=== PATIENT | male | born 1955 | race Caucasian/White ===

== ENCOUNTER 2017-03-11 16:57 | Inpatient (IN) | payer MEDICARE, MEDICAID ==
[2017-03-11] MEDS ORDERED: Acetaminophen 650 MG Supp RECTAL PRN (17:12)
[2017-03-11] MEDS ORDERED: Ondansetron 4 MG/2 ML SDV IV PRN (17:12)
[2017-03-11] MEDS ORDERED: Morphine 2 MG/ML Syringe IVPUSH PRN (17:12)
[2017-03-11] MEDS ORDERED: Magnesium Hydroxide 400 MG/5 ML Susp 30 ML Cup PO PRN (17:12)
[2017-03-11] MEDS ORDERED: Acetaminophen 325 MG Tab PO PRN (17:12)
[2017-03-11] MEDS ORDERED: Ondansetron 4 MG Tab.DIS PO PRN (17:12)
[2017-03-11] MEDS ORDERED: Albuterol 0.083% 2.5 MG/3 ML Neb Soln NEB PRN (17:12)
[2017-03-11] MEDS ORDERED: Benzonatate 100 MG Cap PO PRN (17:18)
[2017-03-11] MEDS: Sodium Chloride 0.9% 500 ML IV SCH ×2 (17:40→22:20)
[2017-03-11] MEDS ORDERED: POLYVINYL ALCOHOL EYEBOTH PRN (17:46)
[2017-03-11] MEDS ORDERED: Hypromellose 0.4% Ophth Soln 15 ML Bottle EYEBOTH PRN (17:52)
--- NOTE | 2017-03-11 17:56 | PCM.HP ---
H&P History of Present Illness - General Date of Service: 03/11/17 Admit Problem/Dx: Admission Diagnosis/Problem Admission Diagnosis/Problem Aspiration pneumonia Source of Information: Family, Provider. No: Patient History Limitations: Reports: No Limitations - History of Present Illness Initial Comments - Free Text/Narative: Darius was transferred to [place] for management of aspiration pneumonia. He initially presented to the emergency room in [place] from a care home in that area with concerns regarding aspiration. He was reportedly very lethargic and running a temperature of 101. Per report there is no episode of vomiting last night while he was wearing his CPap mask and this was what raised concern for aspiration. He is unable to provide any history so history is gathered from the emergency room personnel and his sister Geno. Evaluation in the emergency room was consistent with aspiration pneumonia. There was evidence for sepsis with tachycardia, hypotension, tachypnea. He had a significant leukocytosis with a white blood cell count of 29,000. There were no beds available so he was transferred here for admission. - Related Data Allergies/Adverse Reactions: Allergies Allergy/AdvReac Type Severity Reaction Status Date / Time No Known Allergies Allergy Verified 03/11/17 17:12 Home Medications: Home Meds Acetaminophen [Tylenol Extra Strength] 500 - 1,000 mg PO QID PRN 03/11/17 [ History] Acetylcysteine [Mucomyst 10%] 400 mg INH QID PRN 03/11/17 [History] Chlorhexidine Gluconate [Peridex 0.12% Rinse] 15 ml PO DAILY 03/11/17 [History] Clotrimazole [Lotrimin AF 1% Crm] 30 gm TOP BID PRN 03/11/17 [History] Fluticasone Propionate 1 spray NS DAILY 03/11/17 [History] Fluticasone/Salmeterol [Advair 250-50 Diskus] 1 each IH BID 03/11/17 [History] Lactose-Reduced Food [Ensure] 1 can PO BID 03/11/17 [History] Lactulose [Chronulac] 20 gm PO DAILY PRN 03/11/17 [History] Levothyroxine 175 mcg PO ACBRK 03/11/17 [History] Loratadine 10 mg PO DAILY 03/11/17 [History] Melatonin 5 mg PO BEDTIME 03/11/17 [History] Multivitamins with Zinc [Stress Formula with Zinc] 1 each PO DAILY 03/11/17 [ History] Omeprazole 20 mg PO DAILY 03/11/17 [History] Polyethylene Glycol 3350 [MiraLAX] 51 gm PO DAILY 03/11/17 [History] Polyvinyl Alcohol [Liquitears] 15 ml EYEBOTH Q4H PRN 03/11/17 [History] Saliva Substitution Combo No.9 [Biotene] 15 ml MM BID 03/11/17 [History] Sertraline [Zoloft] 50 mg PO DAILY 03/11/17 [History] Simethicone 125 mg PO TIDAC 03/11/17 [History] Triamcinolone Acetonide [Triamcinolone Acetonide 0.1% Oint] 1 g TOP BID PRN 07/22 [History] levETIRAcetam [Keppra] 250 mg PO BID 03/11/17 [History] Past Medical History Respiratory History: Reports: Pneumonia, Recurrent (Presumed aspiration) Neurological History: Reports: Seizure Psychiatric History: Reports: Other (See Below) (Down's syndrome) Endocrine/Metabolic History: Reports: Hypothyroidism Social & Family History - Family History Family Medical History: Unobtainable (Patient does not talk) - Tobacco Use Smoking Status *Q: Never Smoker - Alcohol Use Alcohol Use History: No Alcohol Use Comment: Patient unable to answer question H&P Review of Systems - Review of Systems: Review Of Systems: Unable To Obtain Free Text/Narrative: Patient does not talk and cannot cooperate with review of systems Exam - Exam Exam: See Below - Exam Quality Assessment: Supplemental Oxygen General: Alert, Cooperative, Mild Distress. No: Oriented HEENT: Conjunctiva Clear. No: Mucosa Moist & [place] (Very dry), Scleral Icterus Neck: Supple, Trachea Midline Lungs: Crackles (Both bases). No: Normal Respiratory Effort (Mild increased work of breathing), Wheezing Cardiovascular: Regular Rhythm, Tachycardia GI/Abdominal Exam: Normal Bowel Sounds, Soft, Tender (Patient says ouch when abdomen palpated). No: Guarding Back Exam: Normal Inspection, Decreased Range of Motion Extremities: No Pedal Edema. No: Increased Warmth Skin: Warm, Dry, Decubitis (Stage IV decubitus ulcer left side of sacrum. 3 cm from cranial to caudal and 2 cm left to right. This is stage IV with a nearly 1 cm ulceration through the subcutaneous tissues) Neuro Extensive - Mental Status: Alert, Opens Eyes to Commands. No: Oriented x3 Neuro Extensive - Motor, Sensory, Reflexes: Abnormal Motor, Tremor Psychiatric: Alert, Anxious - Patient Data Lab Results Last 24 hrs: White blood cell count 29.8,000 Hgb 12.7 Plt 265 Creat 0.8 Glucose 100 Sodium 136 Potassium 4.3 CO2 28 Lactic acid 1.8 Imaging Impressions Last 24 hrs: Chest x-ray - images personally reviewed - there appears to be a right middle lobe infiltrate. No definite mass or effusion. Heart size is normal. *Q Meaningful Use (ADM) - VTE *Q VTE Criteria *Q: - VTE Risk Assess *Q Each Risk Factor Represents 1 Point: Serious lung disease including pneumonia Total Score 1 Point Risk Factors: 1 Each Risk Factor Represents 2 Points: Age 60 - 74 Years Total Score 2 Point Risk Factors: 2 Each Risk Factor Represents 3 Points: None Total Score 3 Point Risk Factors: 0 Each Risk Factor Represents 5 Points: None Total Score 5 Point Risk Factors: 0 Venous Thromboembolism Risk Factor Score *Q: 3 - Stroke *Q Stroke Criteria *Q: - AMI *Q AMI Criteria *Q: - Problem List (1) Recurrent aspiration pneumonia SNOMED Code(s): 505141634 ICD Code: J69.0 - PNEUMONITIS DUE TO INHALATION OF FOOD AND VOMIT Status: Acute Current Visit: Yes (2) Sepsis SNOMED Code(s): 56332431 ICD Code: A41.9 - SEPSIS, UNSPECIFIED ORGANISM Status: Acute Current Visit: Yes Qualifiers: Sepsis type: sepsis due to unspecified organism Qualified Code(s): A41.9 - Sepsis, unspecified organism (3) Down's syndrome SNOMED Code(s): 72757650 ICD Code: Q90.9 - DOWN SYNDROME, UNSPECIFIED Status: Chronic Current Visit: Yes (4) Stage IV decubitus ulcer SNOMED Code(s): 892613554 ICD Code: L89.94 - PRESSURE ULCER OF UNSPECIFIED SITE, STAGE 4 Status: Chronic Current Visit: Yes Qualifiers: Pressure ulcer location: sacral region Qualified Code(s): L89.154 - Pressure ulcer of sacral region, stage 4 (5) Hypothyroidism (acquired) SNOMED Code(s): 605676261 ICD Code: E03.9 - HYPOTHYROIDISM, UNSPECIFIED Status: Chronic Current Visit: Yes (6) Seizure disorder SNOMED Code(s): 943988129 ICD Code: G40.909 - EPILEPSY, UNSP, NOT INTRACTABLE, WITHOUT STATUS EPILEPTICUS Status: Chronic Current Visit: Yes Problem List Initiated/Reviewed/Updated: Yes Orders Last 24hrs: Active Orders 24 hr Category Date Time Status Patient Status [ADT] Routine ADT 03/11/17 17:12 Active Bedrest Bedside Commode [RC] ASDIRECTED Care 03/11/17 17:12 Active Cardiac Monitoring [RC] CONTINUOUS Care 03/11/17 17:14 Active Dietary Supplements [RC] BIDAC Care 03/11/17 17:48 Ordered Intake and Output [RC] QSHIFT Care 03/11/17 17:14 Active Notify Provider Vital Signs [RC] ASDIRECTED Care 03/11/17 17:14 Active Oxygen Therapy [RC] PRN Care 03/11/17 17:12 Active Pulse Oximetry [RC] CONTINUOUS Care 03/11/17 17:14 Active RT Aerosol Therapy [RC] ASDIRECTED Care 03/11/17 17:16 Active VTE/DVT Education [RC] Per Unit Routine Care 03/11/17 17:12 Active Vital Signs [RC] Q2HR Care 03/11/17 17:12 Active Pureed Diet [DIET] Diet 03/12/17 Breakfast Active Thickened Liquids [DIET] Diet 03/12/17 Breakfast Ordered BASIC METABOLIC PANEL,BMP [CHEM] AM Lab 03/12/17 05:11 Ordered CBC W/O DIFF,HEMOGRAM [HEME] AM Lab 03/12/17 05:11 Ordered CULTURE RESPIRATORY + SMEAR [RM] Routine Lab 03/11/17 17:12 Uncollected MAGNESIUM [CHEM] AM Lab 03/12/17 05:11 Ordered Acetaminophen [Tylenol] Med 03/11/17 17:12 Active 650 mg PO Q4H PRN Acetaminophen [Tylenol] Med 03/11/17 17:12 Active 650 mg RECTAL Q4H PRN Albuterol [Proventil Neb Soln] Med 03/11/17 17:12 Active 2.5 mg NEB Q4H PRN Albuterol/Ipratropium [DuoNeb 3.0-0.5 MG/3 ML] Med 03/11/17 21:00 Active 3 ml NEB QIDRT Benzonatate [Tessalon Perles] Med 03/11/17 17:18 Active 100 mg PO TID PRN Chlorhexidine Gluconate [Peridex 0.12% Rinse] Med 03/12/17 09:00 Ordered 15 ml PO DAILY Docusate Sodium/Sennosides [Senna Plus] Med 03/11/17 17:12 Active 1 tab PO BID PRN Enoxaparin [Lovenox] Med 03/12/17 09:00 Pending 30 mg SUBCUT DAILY Fluticasone Propionate [Fluticasone Propionate] Med 03/12/17 09:00 Ordered 1 spray NS DAILY Fluticasone/Salmeterol [Advair 250-50 Diskus] Med 03/11/17 21:00 Ordered 1 each IH BID Levothyroxine [Synthroid] Med 03/12/17 07:30 Active 175 mcg PO ACBREAKFAST Loratadine [Claritin] Med 03/12/17 09:00 Ordered 10 mg PO DAILY Magnesium Hydroxide [Milk of Magnesia] Med 03/11/17 17:12 Active 30 ml PO Q12H PRN Melatonin Med 03/11/17 21:00 Ordered 6 mg PO BEDTIME Morphine Med 03/11/17 17:12 Active 2 mg IVPUSH Q2H PRN Ondansetron [Zofran ODT] Med 03/11/17 17:12 Active 4 mg PO Q6H PRN Ondansetron [Zofran] Med 03/11/17 17:12 Active 4 mg IV Q6H PRN Piperacillin/Tazobactam/Dext [Zosyn in Dextrose Iso- Med 03/11/17 20:00 Active Osmotic 3.375 GM] 3.375 gm Premix Bag 1 bag IV Q6H Polyethylene Glycol 3350 [MiraLAX] Med 03/12/17 09:00 Ordered 51 gm PO DAILY Polyvinyl Alcohol [LiquiTears 1.4% Ophth Soln] Med 03/11/17 17:46 Ordered 15 ml EYEBOTH Q4H PRN Sertraline [Zoloft] Med 03/12/17 09:00 Ordered 50 mg PO DAILY Simethicone [Simethicone] Med 03/12/17 07:30 Ordered 125 mg PO TIDAC Sodium Chloride 0.9% [Normal Saline] 1,000 ml Med 03/11/17 17:15 Active IV ASDIRECTED levETIRAcetam [Keppra] Med 03/11/17 21:00 Ordered 250 mg PO BID Pressure Reduction Mattress [OM.PC] Routine Oth 03/11/17 17:12 Ordered Resuscitation Status Routine Resus Stat 03/11/17 17:12 Ordered Medication Orders Acetaminophen (Tylenol) 650 mg PO Q4H PRN PRN Reason: Pain (Mild 1-3)/fever Acetaminophen (Tylenol) 650 mg RECTAL Q4H PRN PRN Reason: Mild pain/fever Albuterol (Proventil Neb Soln) 2.5 mg NEB Q4H PRN PRN Reason: Shortness Of Breath/wheezing Albuterol/Ipratropium (Duoneb 3.0-0.5 Mg/3 Ml) 3 ml NEB QIDRT [facility] Benzonatate (Tessalon Perles) 100 mg PO TID PRN PRN Reason: Cough Chlorhexidine Gluconate (Peridex 0.12% Rinse) 15 ml PO DAILY [facility] Enoxaparin Sodium (Lovenox) 30 mg SUBCUT DAILY [facility] Piperacillin/Tazobactam/ (Dextrose 3.375 gm/ Premix) 50 mls @ 100 mls/hr IV Q6H [facility] Sodium Chloride (Normal Saline) 1,000 mls @ 125 mls/hr IV ASDIRECTED [facility] Levetiracetam (Keppra) 250 mg PO BID [facility] Levothyroxine Sodium 100 mcg/ (Levothyroxine Sodium 75 mcg) 175 mcg PO ACBREAKFAST [facility] Loratadine (Claritin) 10 mg PO DAILY [facility] Magnesium Hydroxide (Milk Of Magnesia) 30 ml PO Q12H PRN PRN Reason: Constipation Morphine Sulfate (Morphine) 2 mg IVPUSH Q2H PRN PRN Reason: Pain (severe 7-10) Non-Formulary Medication (Fluticasone Propionate [Fluticasone Propionate]) 1 spray NS DAILY [facility] Non-Formulary Medication (Fluticasone/Salmeterol [Advair 250-50 Diskus]) 1 each IH BID [facility] Non-Formulary Medication (Polyvinyl Alcohol [Liquitears 1.4% Ophth Soln]) 15 ml EYEBOTH Q4H PRN PRN Reason: Dry Eyes Non-Formulary Medication (Simethicone [Simethicone]) 125 mg PO TIDAC [facility] Ondansetron HCl (Zofran Odt) 4 mg PO Q6H PRN PRN Reason: Nausea able to take PO Ondansetron HCl (Zofran) 4 mg IV Q6H PRN PRN Reason: Nausea/Vomiting Polyethylene Glycol (Miralax) 51 gm PO DAILY [facility] Senna/Docusate Sodium (Senna Plus) 1 tab PO BID PRN PRN Reason: Constipation Sertraline HCl (Zoloft) 50 mg PO DAILY [facility] Assessment/Plan Comment:: ASSESSMENT AND PLAN - Recurrent aspiration pneumonia with hypoxic respiratory failure and sepsis - admitted twice in the past month for the same thing down in [place]. Episode of vomiting last night while wearing his CPAP. He is tachycardic, tachypneic and hypotensive. He has received 1 L of IV fluids and a dose of Pip/Tazo. Lactic acid level was normal. -Continue Pip/Tazo -IV fluids -IV fluid bolus with mild hypotension -Supplement oxygen -Follow-up cultures -Head of bed elevation Stage IV sacral decubitus ulcer - Chronic and present on admission. Duoderm has been applied at the time of admission. Seizure disorder - History of. No recent seizures. -Continue Keppra Down's syndrome - Chronic and stable. Does not communicate. Maintenance issues - - DVT prophylaxis - enoxaparin - GI prophylaxis - PPI - Nutrition - pureed Diet with nectar thick liquids - Valadez catheter - not indicated CODE STATUS - full code per advance directive Admission justification - This patient will be admitted for inpatient services and is medically appropriate meeting medical necessity for inpatient admission as outlined in my documentation. I reasonably expect the patient will require inpatient services that span a period time over 2 midnights. I reasonably expect this patient to be discharged or transferred within 96 hours [facility]. Disposition - anticipate discharge back to the care home after the hospital stay Primary care physician - Matheus in [place] Mtaa Martinez M.D.
[2017-03-11] MEDS: Sodium Chloride 0.9% 1,000 ML IV SCH (19:28)
[2017-03-11] MEDS: Piperacillin/Tazobactam/Dext 3.375 GM in Premix Bag 1 BAG IV SCH (20:18)
[2017-03-11] MEDS: Melatonin 3 MG Tab PO SCH (20:27)
[2017-03-11] MEDS: Formoterol/Mometasone 200-5 MCG 8.8 GM Inhaler IH SCH (20:27)
[2017-03-11] MEDS: Albuterol/Ipratropium 3.0-0.5 MG/3 ML Neb Soln NEB SCH (20:27)
[2017-03-11] MEDS: levETIRAcetam 250 MG Tab PO SCH (20:28)
[2017-03-11] MEDS ORDERED: Non-Formulary Medication 1 Each (Fluticasone/Salmeterol [Advair 250-50 Diskus] 1 EACH) IH SCH (21:00)
[2017-03-11] MEDS ORDERED: Sodium Chloride 0.9% Irrigation 500 ML Container IRR PRN (22:15)
[2017-03-12] MEDS ORDERED: Hydrocortisone Sodium Succinate 100 MG/2 ML SDV IVPUSH ONE (00:16)
[2017-03-12] MEDS: Sodium Chloride 0.9% 500 ML IV SCH (00:19)
[2017-03-12] MEDS: Sodium Chloride 0.9% 1,000 ML IV SCH ×3 (01:24→11:35)
[2017-03-12] MEDS: Piperacillin/Tazobactam/Dext 3.375 GM in Premix Bag 1 BAG IV SCH ×4 (02:11→19:37)
[2017-03-12] MEDS ORDERED: Non-Formulary Medication 1 Each (Simethicone [Simethicone] 125 MG) PO SCH (07:30)
[2017-03-12] MEDS ORDERED: Non-Formulary Medication 1 Each (Levothyroxine [Levothyroxine] 175 MCG) PO SCH (07:30)
[2017-03-12] MEDS: Albuterol/Ipratropium 3.0-0.5 MG/3 ML Neb Soln NEB SCH ×4 (08:05→21:44)
[2017-03-12] MEDS: Formoterol/Mometasone 200-5 MCG 8.8 GM Inhaler IH SCH ×2 (08:31→21:38)
[2017-03-12] MEDS: Pantoprazole 40 MG Tab.CR PO SCH (08:42)
[2017-03-12] MEDS: Simethicone 80 MG Tab.Chew PO SCH ×3 (08:43→16:25)
[2017-03-12] MEDS: Loratadine 10 MG Tab PO SCH (08:44)
[2017-03-12] MEDS: Fluticasone Propionate Nasal Spray 16 GM Bottle NAS SCH (08:45)
[2017-03-12] MEDS: levETIRAcetam 250 MG Tab PO SCH ×2 (08:45→21:39)
[2017-03-12] MEDS: Enoxaparin 30 MG/0.3 ML Syringe SUBCUT SCH (08:46)
[2017-03-12] MEDS: Polyethylene Glycol 3350 Powder 17 GM Packet PO SCH (08:46)
[2017-03-12] MEDS: Chlorhexidine Gluconate 0.12% Oral Rinse 15 ML Cup PO SCH ×2 (08:47→08:58)
[2017-03-12] MEDS: Sertraline 50 MG Tab PO SCH (08:47)
[2017-03-12] MEDS ORDERED: FLUTICASONE PROPIONATE NS SCH (09:00)
--- NOTE | 2017-03-12 09:13 | PCM.PN ---
- General Info Date of Service: 03/12/17 Functional Status: Reports: Pain Controlled - Review of Systems General: Denies: Fever Pulmonary: Reports: Cough Systems Review Comment:: Some difficulty with intermittent hypotension overnight but this seems better after a couple fluid boluses and hydrocortisone injections. Patient is alert but does not speak which is his baseline. Heart rate slowly improving. Loose cough seems a little better today. No fevers. - Patient Data Vitals - Most Recent: Last Vital Signs Temp 37.4 C 03/12/17 02:00 Pulse 83 03/12/17 06:00 Resp 16 03/12/17 06:00 BP 85/49 L 03/12/17 06:00 Pulse Ox 93 L 03/12/17 06:00 Weight - Most Recent: 48.353 kg I&O - Last 24 Hours: Intake & Output 03/11/17 03/12/17 03/12/17 22:59 06:59 14:59 Intake Total 180 2916 Balance 180 2916 Lab Results Last 24 Hours: Laboratory Results - last 24 hr 03/12/17 03/12/17 Range/Units 05:58 05:58 WBC 17.2 H (4.5-11.0) K/uL RBC 4.12 L (4.30-5.90) M/uL Hgb 11.5 L (12.0-15.0) g/dL Hct 36.0 L (40.0-54.0) % MCV 87 (80-98) fL MCH 28 (27-31) pg MCHC 32 (32-36) % Plt Count 228 (150-400) K/uL Sodium 141 (140-148) mmol/L Potassium 4.4 (3.6-5.2) mmol/L Chloride 108 (100-108) mmol/L Carbon Dioxide 25 (21-32) mmol/L Anion Gap 8.0 (5.0-14.0) mmol/L BUN 12 (7-18) mg/dL Creatinine 1.0 (0.8-1.3) mg/dL Est Cr Clr Drug Dosing 53.73 mL/min Estimated GFR (MDRD) > 60 (>60) Glucose 142 H (74-106) mg/dL Calcium 8.6 (8.5-10.1) mg/dL Magnesium 1.8 (1.8-2.4) mg/dL Med Orders - Current: Current Medications Acetaminophen (Tylenol) 650 mg PO Q4H PRN PRN Reason: Pain (Mild 1-3)/fever Acetaminophen (Tylenol) 650 mg RECTAL Q4H PRN PRN Reason: Mild pain/fever Albuterol (Proventil Neb Soln) 2.5 mg NEB Q4H PRN PRN Reason: Shortness Of Breath/wheezing Albuterol/Ipratropium (Duoneb 3.0-0.5 Mg/3 Ml) 3 ml NEB QIDRT [facility] Last Admin: 03/12/17 08:05 Dose: 3 ml Artificial Tears (Natural Balance Tears) 0 ml EYEBOTH Q4H PRN PRN Reason: DRY EYES Benzonatate (Tessalon Perles) 100 mg PO TID PRN PRN Reason: Cough Chlorhexidine Gluconate (Peridex 0.12% Rinse) 15 ml PO DAILY [facility] Last Admin: 03/12/17 08:58 Dose: Not Given Enoxaparin Sodium (Lovenox) 30 mg SUBCUT DAILY [facility] Last Admin: 03/12/17 08:46 Dose: 30 mg Fluticasone Propionate (Flonase) 0 gm JULIANA DAILY [facility] Last Admin: 03/12/17 08:45 Dose: 1 spray Piperacillin/Tazobactam/ (Dextrose 3.375 gm/ Premix) 50 mls @ 100 mls/hr IV Q6H [facility] Last Admin: 03/12/17 08:44 Dose: 100 mls/hr Levetiracetam (Keppra) 250 mg PO BID [facility] Last Admin: 03/12/17 08:45 Dose: 250 mg Levothyroxine Sodium 100 mcg/ (Levothyroxine Sodium 75 mcg) 175 mcg PO ACBREAKFAST [facility] Last Admin: 03/12/17 08:44 Dose: 175 mcg Loratadine (Claritin) 10 mg PO DAILY [facility] Last Admin: 03/12/17 08:44 Dose: 10 mg Magnesium Hydroxide (Milk Of Magnesia) 30 ml PO Q12H PRN PRN Reason: Constipation Melatonin (Melatonin) 6 mg PO BEDTIME [facility] Last Admin: 03/11/17 20:27 Dose: 6 mg Mometasone Furoate/Formoterol Fumar (Dulera 200-5 Mcg) 2 puff IH BIDRT [facility] Last Admin: 03/12/17 08:31 Dose: 2 inhalation Morphine Sulfate (Morphine) 2 mg IVPUSH Q2H PRN PRN Reason: Pain (severe 7-10) Ondansetron HCl (Zofran Odt) 4 mg PO Q6H PRN PRN Reason: Nausea able to take PO Ondansetron HCl (Zofran) 4 mg IV Q6H PRN PRN Reason: Nausea/Vomiting Pantoprazole Sodium (Protonix) 40 mg PO ACBREAKFAST [facility] Last Admin: 03/12/17 08:42 Dose: 40 mg Polyethylene Glycol (Miralax) 51 gm PO DAILY [facility] Last Admin: 03/12/17 08:46 Dose: 51 gm Senna/Docusate Sodium (Senna Plus) 1 tab PO BID PRN PRN Reason: Constipation Sertraline HCl (Zoloft) 50 mg PO DAILY [facility] Last Admin: 03/12/17 08:47 Dose: 50 mg Simethicone (Simethicone) 120 mg PO TIDAC [facility] Last Admin: 03/12/17 08:43 Dose: 120 mg Discontinued Medications Hydrocortisone Sodium Succinate (Solu-Cortef) 100 mg IVPUSH ONETIME ONE Stop: 03/12/17 00:17 Last Admin: 03/12/17 00:32 Dose: 100 mg Sodium Chloride (Normal Saline) 1,000 mls @ 125 mls/hr IV ASDIRECTED [facility] Last Admin: 03/12/17 07:01 Dose: 125 mls/hr Sodium Chloride (Normal Saline) 500 mls @ 999 mls/hr IV ASDIRECTED [facility] Last Admin: 03/12/17 00:19 Dose: 999 mls/hr - Exam Quality Assessment: Supplemental Oxygen General: Alert, No Acute Distress Lungs: Clear to Auscultation, Normal Respiratory Effort Cardiovascular: Regular Rate, Regular Rhythm GI/Abdominal Exam: Soft, No Distention, Tender Extremities: No Pedal Edema Skin: Warm, Dry Psy/Mental Status: Alert - Problem List & Annotations (1) Recurrent aspiration pneumonia SNOMED Code(s): 688834192 Code(s): J69.0 - PNEUMONITIS DUE TO INHALATION OF FOOD AND VOMIT Status: Acute Current Visit: Yes (2) Sepsis SNOMED Code(s): 55079009 Code(s): A41.9 - SEPSIS, UNSPECIFIED ORGANISM Status: Acute Current Visit : Yes Qualifiers: Sepsis type: sepsis due to unspecified organism Qualified Code(s): A41.9 - Sepsis, unspecified organism (3) Down's syndrome SNOMED Code(s): 20812230 Code(s): Q90.9 - DOWN SYNDROME, UNSPECIFIED Status: Chronic Current Visit : Yes (4) Stage IV decubitus ulcer SNOMED Code(s): 412774542 Code(s): L89.94 - PRESSURE ULCER OF UNSPECIFIED SITE, STAGE 4 Status: Chronic Current Visit: Yes Qualifiers: Pressure ulcer location: sacral region Qualified Code(s): L89.154 - Pressure ulcer of sacral region, stage 4 (5) Hypothyroidism (acquired) SNOMED Code(s): 446659198 Code(s): E03.9 - HYPOTHYROIDISM, UNSPECIFIED Status: Chronic Current Visit: Yes (6) Seizure disorder SNOMED Code(s): 687590885 Code(s): G40.909 - EPILEPSY, UNSP, NOT INTRACTABLE, WITHOUT STATUS EPILEPTICUS Status: Chronic Current Visit: Yes - Problem List Review Problem List Initiated/Reviewed/Updated: Yes - My Orders Last 24 Hours: My Active Orders 03/11/17 17:12 Patient Status [ADT] Routine Bedrest Bedside Commode [RC] ASDIRECTED Oxygen Therapy [RC] Q12H Vital Signs [RC] Q4H Acetaminophen [Tylenol] 650 mg PO Q4H PRN Acetaminophen [Tylenol] 650 mg RECTAL Q4H PRN Albuterol [Proventil Neb Soln] 2.5 mg NEB Q4H PRN Docusate Sodium/Sennosides [Senna Plus] 1 tab PO BID PRN Magnesium Hydroxide [Milk of Magnesia] 30 ml PO Q12H PRN Morphine 2 mg IVPUSH Q2H PRN Ondansetron [Zofran ODT] 4 mg PO Q6H PRN Ondansetron [Zofran] 4 mg IV Q6H PRN Pressure Reduction Mattress [OM.PC] Routine Resuscitation Status Routine 03/11/17 17:14 Intake and Output [RC] QSHIFT Notify Provider Vital Signs [RC] ASDIRECTED 03/11/17 17:16 RT Aerosol Therapy [RC] ASDIRECTED 03/11/17 17:18 Benzonatate [Tessalon Perles] 100 mg PO TID PRN 03/11/17 17:48 Dietary Supplements [RC] BIDAC 03/11/17 17:52 Hypromellose [Natural Balance Tears] 0 ml EYEBOTH Q4H PRN 03/11/17 20:00 Piperacillin/Tazobactam/Dext [Zosyn in Dextrose Iso-Osmotic 3.375 GM] 3.375 gm Premix Bag 1 bag IV Q6H 03/11/17 21:00 Albuterol/Ipratropium [DuoNeb 3.0-0.5 MG/3 ML] 3 ml NEB QIDRT Melatonin 6 mg PO BEDTIME Mometasone/Formoterol [Dulera 200-5 MCG] 2 puff IH BIDRT levETIRAcetam [Keppra] 250 mg PO BID 03/12/17 07:30 Levothyroxine [Synthroid] 175 mcg PO ACBREAKFAST Pantoprazole [ProTONIX] 40 mg PO ACBREAKFAST Simethicone 120 mg PO TIDAC 03/12/17 09:00 Chlorhexidine Gluconate [Peridex 0.12% Rinse] 15 ml PO DAILY Enoxaparin [Lovenox] 30 mg SUBCUT DAILY Fluticasone Propionate [Flonase] 0 gm JULIANA DAILY Loratadine [Claritin] 10 mg PO DAILY Polyethylene Glycol 3350 [MiraLAX] 51 gm PO DAILY Sertraline [Zoloft] 50 mg PO DAILY 03/12/17 09:11 Discontinue Telemetry Monitoring [Cardiac Monitoring Discontinue] [RC] Click to Edit 03/12/17 09:12 Transfer Patient (Change bed) [ADT] Routine 03/12/17 09:15 Sodium Chloride 0.9% [Normal Saline] 1,000 ml IV ASDIRECTED 03/12/17 Breakfast Pureed Diet [DIET] Thickened Liquids [DIET] 03/13/17 05:00 BASIC METABOLIC PANEL,BMP [CHEM] Timed CBC W/O DIFF,HEMOGRAM [HEME] Timed (1) - Plan Plan:: ASSESSMENT AND PLAN - Recurrent aspiration pneumonia with hypoxic respiratory failure and sepsis - admitted twice in the past month for the same thing down in [place]. Sepsis has resolved with volume resuscitation. He did require doses of hydrocortisone. Clinically much better today. -Continue Pip/Tazo -IV fluids -Supplement oxygen -Follow-up cultures -Head of bed elevation Stage IV sacral decubitus ulcer - Chronic and present on admission. Duoderm applied at the time of admission. Seizure disorder - History of. No recent seizures. -Continue Keppra Down's syndrome - Chronic and stable. Does not communicate. Maintenance issues - - DVT prophylaxis - enoxaparin - GI prophylaxis - PPI - Nutrition - pureed Diet with nectar thick liquids Disposition - [facility] after [facility] stay Primary care physician - Matheus in [place] Mata Martinez M.D.
[2017-03-12] MEDS: Melatonin 3 MG Tab PO SCH (21:39)
[2017-03-13] MEDS: Sodium Chloride 0.9% 1,000 ML IV SCH ×2 (01:15→12:27)
[2017-03-13] MEDS: Piperacillin/Tazobactam/Dext 3.375 GM in Premix Bag 1 BAG IV SCH ×3 (02:09→14:32)
[2017-03-13] MEDS: Pantoprazole 40 MG Tab.CR PO SCH (07:29)
[2017-03-13] MEDS: Simethicone 80 MG Tab.Chew PO SCH ×3 (07:29→15:46)
[2017-03-13] MEDS: Formoterol/Mometasone 200-5 MCG 8.8 GM Inhaler IH SCH ×2 (07:34→20:13)
[2017-03-13] MEDS: Albuterol/Ipratropium 3.0-0.5 MG/3 ML Neb Soln NEB SCH ×4 (07:34→20:22)
[2017-03-13] MEDS: Fluticasone Propionate Nasal Spray 16 GM Bottle NAS SCH (08:59)
[2017-03-13] MEDS: levETIRAcetam 250 MG Tab PO SCH ×2 (08:59→20:13)
[2017-03-13] MEDS: Sertraline 50 MG Tab PO SCH (09:00)
[2017-03-13] MEDS: Enoxaparin 30 MG/0.3 ML Syringe SUBCUT SCH (09:00)
[2017-03-13] MEDS: Polyethylene Glycol 3350 Powder 17 GM Packet PO SCH (09:00)
[2017-03-13] MEDS: Chlorhexidine Gluconate 0.12% Oral Rinse 15 ML Cup PO SCH (09:00)
[2017-03-13] MEDS: Loratadine 10 MG Tab PO SCH (09:01)
[2017-03-13] MEDS ORDERED: Potassium Chloride 20 MEQ Tab.ER PO ONE (10:00)
--- NOTE | 2017-03-13 15:26 | PCM.PN ---
- General Info Date of Service: 03/13/17 Functional Status: Reports: Pain Controlled, Tolerating Diet - Review of Systems General: Denies: Fever Pulmonary: Reports: Cough Systems Review Comment:: No acute events overnight. He is off supplemental oxygen. He has been tolerating his diet well with no coughing episodes. No fevers. Seems to be doing quite well. Cultures negative. - Patient Data Vitals - Most Recent: Last Vital Signs Temp 37.1 C 03/13/17 14:24 Pulse 90 03/13/17 14:24 Resp 20 03/13/17 14:24 BP 150/89 H 03/13/17 14:24 Pulse Ox 94 L 03/13/17 14:24 Weight - Most Recent: 48.353 kg I&O - Last 24 Hours: Intake & Output 03/13/17 03/13/17 03/13/17 06:59 14:59 22:59 Intake Total 837 1397 Balance 837 1397 Lab Results Last 24 Hours: Laboratory Results - last 24 hr 03/13/17 03/13/17 Range/Units 06:01 06:01 WBC 9.2 (4.5-11.0) K/uL RBC 3.90 L (4.30-5.90) M/uL Hgb 10.7 L (12.0-15.0) g/dL Hct 33.7 L (40.0-54.0) % MCV 86 (80-98) fL MCH 27 (27-31) pg MCHC 32 (32-36) % Plt Count 233 (150-400) K/uL Sodium 142 (140-148) mmol/L Potassium 3.5 L (3.6-5.2) mmol/L Chloride 109 H (100-108) mmol/L Carbon Dioxide 26 (21-32) mmol/L Anion Gap 10.5 (5.0-14.0) mmol/L BUN 8 (7-18) mg/dL Creatinine 0.8 (0.8-1.3) mg/dL Est Cr Clr Drug Dosing 67.16 mL/min Estimated GFR (MDRD) > 60 (>60) Glucose 94 (74-106) mg/dL Calcium 8.4 L (8.5-10.1) mg/dL Med Orders - Current: Current Medications Acetaminophen (Tylenol) 650 mg PO Q4H PRN PRN Reason: Pain (Mild 1-3)/fever Acetaminophen (Tylenol) 650 mg RECTAL Q4H PRN PRN Reason: Mild pain/fever Albuterol (Proventil Neb Soln) 2.5 mg NEB Q4H PRN PRN Reason: Shortness Of Breath/wheezing Albuterol/Ipratropium (Duoneb 3.0-0.5 Mg/3 Ml) 3 ml NEB QIDRT [facility] Last Admin: 03/13/17 14:37 Dose: 3 ml Artificial Tears (Natural Balance Tears) 0 ml EYEBOTH Q4H PRN PRN Reason: DRY EYES Benzonatate (Tessalon Perles) 100 mg PO TID PRN PRN Reason: Cough Chlorhexidine Gluconate (Peridex 0.12% Rinse) 15 ml PO DAILY [facility] Last Admin: 03/13/17 09:00 Dose: 15 ml Enoxaparin Sodium (Lovenox) 30 mg SUBCUT DAILY [facility] Last Admin: 03/13/17 09:00 Dose: 30 mg Fluticasone Propionate (Flonase) 0 gm JULIANA DAILY [facility] Last Admin: 03/13/17 08:59 Dose: 2 spray Levetiracetam (Keppra) 250 mg PO BID [facility] Last Admin: 03/13/17 08:59 Dose: 250 mg Levothyroxine Sodium 100 mcg/ (Levothyroxine Sodium 75 mcg) 175 mcg PO ACBREAKFAST [facility] Last Admin: 03/13/17 07:29 Dose: 175 mcg Loratadine (Claritin) 10 mg PO DAILY [facility] Last Admin: 03/13/17 09:01 Dose: 10 mg Magnesium Hydroxide (Milk Of Magnesia) 30 ml PO Q12H PRN PRN Reason: Constipation Melatonin (Melatonin) 6 mg PO BEDTIME [facility] Last Admin: 03/12/17 21:39 Dose: 6 mg Mometasone Furoate/Formoterol Fumar (Dulera 200-5 Mcg) 2 puff IH BIDRT [facility] Last Admin: 03/13/17 07:34 Dose: 2 inhalation Morphine Sulfate (Morphine) 2 mg IVPUSH Q2H PRN PRN Reason: Pain (severe 7-10) Ondansetron HCl (Zofran Odt) 4 mg PO Q6H PRN PRN Reason: Nausea able to take PO Ondansetron HCl (Zofran) 4 mg IV Q6H PRN PRN Reason: Nausea/Vomiting Pantoprazole Sodium (Protonix) 40 mg PO ACBREAKFAST [facility] Last Admin: 03/13/17 07:29 Dose: 40 mg Polyethylene Glycol (Miralax) 51 gm PO DAILY [facility] Last Admin: 03/13/17 09:00 Dose: 51 gm Senna/Docusate Sodium (Senna Plus) 1 tab PO BID PRN PRN Reason: Constipation Sertraline HCl (Zoloft) 50 mg PO DAILY [facility] Last Admin: 03/13/17 09:00 Dose: 50 mg Simethicone (Simethicone) 120 mg PO TIDAC [facility] Last Admin: 03/13/17 12:26 Dose: 120 mg Discontinued Medications Hydrocortisone Sodium Succinate (Solu-Cortef) 100 mg IVPUSH ONETIME ONE Stop: 03/12/17 00:17 Last Admin: 03/12/17 00:32 Dose: 100 mg Piperacillin/Tazobactam/ (Dextrose 3.375 gm/ Premix) 50 mls @ 100 mls/hr IV Q6H [facility] Last Admin: 03/13/17 14:32 Dose: 100 mls/hr Sodium Chloride (Normal Saline) 1,000 mls @ 125 mls/hr IV ASDIRECTED [facility] Last Admin: 03/12/17 07:01 Dose: 125 mls/hr Sodium Chloride (Normal Saline) 500 mls @ 999 mls/hr IV ASDIRECTED [facility] Last Admin: 03/12/17 00:19 Dose: 999 mls/hr Sodium Chloride (Normal Saline) 1,000 mls @ 100 mls/hr IV ASDIRECTED [facility] Last Admin: 03/13/17 12:27 Dose: 100 mls/hr Potassium Chloride (Klor-Con M20) 40 meq PO ONETIME ONE Stop: 03/13/17 10:01 Last Admin: 03/13/17 12:26 Dose: 40 meq - Exam Quality Assessment: Supplemental Oxygen General: Alert, Oriented, Cooperative, No Acute Distress Neck: Supple Lungs: Normal Respiratory Effort, Crackles (right lower lung) Cardiovascular: Regular Rate, Regular Rhythm GI/Abdominal Exam: Soft, No Distention Extremities: No Pedal Edema - Problem List & Annotations (1) Recurrent aspiration pneumonia SNOMED Code(s): 850419378 Code(s): J69.0 - PNEUMONITIS DUE TO INHALATION OF FOOD AND VOMIT Status: Acute Current Visit: Yes (2) Sepsis SNOMED Code(s): 21166767 Code(s): A41.9 - SEPSIS, UNSPECIFIED ORGANISM Status: Acute Current Visit : Yes Qualifiers: Sepsis type: sepsis due to unspecified organism Qualified Code(s): A41.9 - Sepsis, unspecified organism (3) Down's syndrome SNOMED Code(s): 80539993 Code(s): Q90.9 - DOWN SYNDROME, UNSPECIFIED Status: Chronic Current Visit : Yes (4) Stage IV decubitus ulcer SNOMED Code(s): 032207794 Code(s): L89.94 - PRESSURE ULCER OF UNSPECIFIED SITE, STAGE 4 Status: Chronic Current Visit: Yes Qualifiers: Pressure ulcer location: sacral region Qualified Code(s): L89.154 - Pressure ulcer of sacral region, stage 4 (5) Hypothyroidism (acquired) SNOMED Code(s): 730950338 Code(s): E03.9 - HYPOTHYROIDISM, UNSPECIFIED Status: Chronic Current Visit: Yes (6) Seizure disorder SNOMED Code(s): 926837690 Code(s): G40.909 - EPILEPSY, UNSP, NOT INTRACTABLE, WITHOUT STATUS EPILEPTICUS Status: Chronic Current Visit: Yes - Problem List Review Problem List Initiated/Reviewed/Updated: Yes - My Orders Last 24 Hours: My Active Orders 03/13/17 15:24 Convert IV to Saline Lock [OM.PC] Routine 03/13/17 21:00 Amoxicillin/Clavulanate K [Augmentin 875 MG/125 MG] 1 tab PO BID - Plan Plan:: ASSESSMENT AND PLAN - Recurrent aspiration pneumonia with hypoxic respiratory failure and sepsis - admitted twice in the past month for the same thing down in [place]. Clinically doing well and off oxygen. -Change antibiotics to Augmentin -Saline lock IV -Supplement oxygen -Follow-up cultures -Head of bed elevation Stage IV sacral decubitus ulcer - Chronic and present on admission. Duoderm applied at the time of admission. Seizure disorder - History of. No recent seizures. -Continue Keppra Down's syndrome - Chronic and stable. Does not communicate. Maintenance issues - - DVT prophylaxis - enoxaparin - GI prophylaxis - PPI - Nutrition - pureed Diet with nectar thick liquids Disposition - anticipate discharge back to the [facility] after the hospital stay, likely tomorrow if stable overnight Primary care physician - Matheus in [place] Mata Martinez M.D.
[2017-03-13] MEDS: Amoxicillin/Clavulanate K 875-125 MG Tab PO SCH (20:12)
[2017-03-13] MEDS: Melatonin 3 MG Tab PO SCH (20:14)
[2017-03-14] MEDS: Formoterol/Mometasone 200-5 MCG 8.8 GM Inhaler IH SCH ×2 (07:37→21:44)
[2017-03-14] MEDS: Albuterol/Ipratropium 3.0-0.5 MG/3 ML Neb Soln NEB SCH ×4 (07:37→21:51)
[2017-03-14] MEDS: Simethicone 80 MG Tab.Chew PO SCH ×3 (08:56→16:05)
[2017-03-14] MEDS: Sertraline 50 MG Tab PO SCH (08:57)
[2017-03-14] MEDS: Pantoprazole 40 MG Tab.CR PO SCH (08:57)
[2017-03-14] MEDS: Loratadine 10 MG Tab PO SCH (08:57)
[2017-03-14] MEDS: Polyethylene Glycol 3350 Powder 17 GM Packet PO SCH (08:59)
[2017-03-14] MEDS: Enoxaparin 30 MG/0.3 ML Syringe SUBCUT SCH (08:59)
[2017-03-14] MEDS: levETIRAcetam 250 MG Tab PO SCH ×2 (08:59→21:45)
[2017-03-14] MEDS: Fluticasone Propionate Nasal Spray 16 GM Bottle NAS SCH (08:59)
[2017-03-14] MEDS: Chlorhexidine Gluconate 0.12% Oral Rinse 15 ML Cup PO SCH (09:00)
[2017-03-14] MEDS: Amoxicillin/Clavulanate K 875-125 MG Tab PO SCH ×2 (09:00→21:44)
--- NOTE | 2017-03-14 12:57 | PCM.PN ---
- General Info Date of Service: 03/14/17 Subjective Update: Mr. Fofana has improved significantly from admission, last night was more alert and interactive. This morning has been more lethargic and weak in appearance. Vital signs are remained good and he has been afebrile. No evidence of any recurrent episodes of aspiration. He is unable to provide significant information concerning review of systems given cognitive impairment. - Patient Data Vitals - Most Recent: Last Vital Signs Temp 96.3 F 03/14/17 11:11 Pulse 66 03/14/17 11:33 Resp 18 03/14/17 11:11 BP 97/63 03/14/17 11:11 Pulse Ox 92 L 03/14/17 11:33 Weight - Most Recent: 106 lb 9.6 oz I&O - Last 24 Hours: Intake & Output 03/13/17 03/14/17 03/14/17 22:59 06:59 14:59 Intake Total 520 150 Balance 520 150 Med Orders - Current: Current Medications Acetaminophen (Tylenol) 650 mg PO Q4H PRN PRN Reason: Pain (Mild 1-3)/fever Acetaminophen (Tylenol) 650 mg RECTAL Q4H PRN PRN Reason: Mild pain/fever Albuterol (Proventil Neb Soln) 2.5 mg NEB Q4H PRN PRN Reason: Shortness Of Breath/wheezing Albuterol/Ipratropium (Duoneb 3.0-0.5 Mg/3 Ml) 3 ml NEB QIDRT [facility] Last Admin: 03/14/17 11:31 Dose: 3 ml Amoxicillin/Clavulanate Potassium (Augmentin 875 Mg/125 Mg) 1 tab PO BID [facility] Last Admin: 03/14/17 09:00 Dose: 1 tab Artificial Tears (Natural Balance Tears) 0 ml EYEBOTH Q4H PRN PRN Reason: DRY EYES Benzonatate (Tessalon Perles) 100 mg PO TID PRN PRN Reason: Cough Chlorhexidine Gluconate (Peridex 0.12% Rinse) 15 ml PO DAILY [facility] Last Admin: 03/14/17 09:00 Dose: 15 ml Enoxaparin Sodium (Lovenox) 30 mg SUBCUT DAILY [facility] Last Admin: 03/14/17 08:59 Dose: 30 mg Fluticasone Propionate (Flonase) 0 gm JULIANA DAILY [facility] Last Admin: 03/14/17 08:59 Dose: 1 spray Levetiracetam (Keppra) 250 mg PO BID [facility] Last Admin: 03/14/17 08:59 Dose: 250 mg Levothyroxine Sodium 100 mcg/ (Levothyroxine Sodium 75 mcg) 175 mcg PO ACBREAKFAST [facility] Last Admin: 03/14/17 08:57 Dose: 175 mcg Loratadine (Claritin) 10 mg PO DAILY [facility] Last Admin: 03/14/17 08:57 Dose: 10 mg Magnesium Hydroxide (Milk Of Magnesia) 30 ml PO Q12H PRN PRN Reason: Constipation Melatonin (Melatonin) 6 mg PO BEDTIME [facility] Last Admin: 03/13/17 20:14 Dose: 6 mg Mometasone Furoate/Formoterol Fumar (Dulera 200-5 Mcg) 2 puff IH BIDRT [facility] Last Admin: 03/14/17 07:37 Dose: 2 inhalation Morphine Sulfate (Morphine) 2 mg IVPUSH Q2H PRN PRN Reason: Pain (severe 7-10) Ondansetron HCl (Zofran Odt) 4 mg PO Q6H PRN PRN Reason: Nausea able to take PO Ondansetron HCl (Zofran) 4 mg IV Q6H PRN PRN Reason: Nausea/Vomiting Pantoprazole Sodium (Protonix) 40 mg PO ACBREAKFAST [facility] Last Admin: 03/14/17 08:57 Dose: 40 mg Polyethylene Glycol (Miralax) 51 gm PO DAILY [facility] Last Admin: 03/14/17 08:59 Dose: 51 gm Senna/Docusate Sodium (Senna Plus) 1 tab PO BID PRN PRN Reason: Constipation Sertraline HCl (Zoloft) 50 mg PO DAILY [facility] Last Admin: 03/14/17 08:57 Dose: 50 mg Simethicone (Simethicone) 120 mg PO TIDAC [facility] Last Admin: 03/14/17 12:46 Dose: 120 mg Discontinued Medications Hydrocortisone Sodium Succinate (Solu-Cortef) 100 mg IVPUSH ONETIME ONE Stop: 03/12/17 00:17 Last Admin: 03/12/17 00:32 Dose: 100 mg Piperacillin/Tazobactam/ (Dextrose 3.375 gm/ Premix) 50 mls @ 100 mls/hr IV Q6H [facility] Last Admin: 03/13/17 14:32 Dose: 100 mls/hr Sodium Chloride (Normal Saline) 1,000 mls @ 125 mls/hr IV ASDIRECTED [facility] Last Admin: 03/12/17 07:01 Dose: 125 mls/hr Sodium Chloride (Normal Saline) 500 mls @ 999 mls/hr IV ASDIRECTED [facility] Last Admin: 03/12/17 00:19 Dose: 999 mls/hr Sodium Chloride (Normal Saline) 1,000 mls @ 100 mls/hr IV ASDIRECTED [facility] Last Admin: 03/13/17 12:27 Dose: 100 mls/hr Potassium Chloride (Klor-Con M20) 40 meq PO ONETIME ONE Stop: 03/13/17 10:01 Last Admin: 03/13/17 12:26 Dose: 40 meq - Exam Quality Assessment: Supplemental Oxygen, DVT Prophylaxis General: Lethargic Lungs: Normal Respiratory Effort, Rhonchi. No: Decreased Breath Sounds, Crackles, Rales, Wheezing Cardiovascular: Regular Rate, Regular Rhythm, No Murmurs GI/Abdominal Exam: Soft, Non-Tender, No Organomegaly, No Distention Extremities: Non-Tender, No Pedal Edema Skin: Warm, Dry - Problem List Review Problem List Initiated/Reviewed/Updated: Yes - Plan Plan:: ASSESSMENT AND PLAN - Recurrent aspiration pneumonia with hypoxic respiratory failure and sepsis - admitted twice in the past month for the same thing down in [place]. Off of oxygen but is more lethargic this morning -Change antibiotics to Augmentin -Saline lock IV -Supplement oxygen -Follow-up cultures -Head of bed elevation Stage IV sacral decubitus ulcer - Chronic and present on admission. Duoderm applied at the time of admission. Seizure disorder - History of. No recent seizures. -Continue Keppra Down's syndrome - Chronic and stable. Does not communicate. Maintenance issues - - DVT prophylaxis - enoxaparin - GI prophylaxis - PPI - Nutrition - pureed Diet with nectar thick liquids Disposition - anticipate discharge back to the long term tomorrow Primary care physician - Matheus in [place]
[2017-03-14] MEDS: Melatonin 3 MG Tab PO SCH (21:43)
[2017-03-15] MEDS: Simethicone 80 MG Tab.Chew PO SCH (07:06)
[2017-03-15] MEDS: Pantoprazole 40 MG Tab.CR PO SCH (07:07)
[2017-03-15] MEDS: Albuterol/Ipratropium 3.0-0.5 MG/3 ML Neb Soln NEB SCH ×2 (07:19→11:02)
[2017-03-15] MEDS: Formoterol/Mometasone 200-5 MCG 8.8 GM Inhaler IH SCH (07:19)
[2017-03-15] MEDS: Amoxicillin/Clavulanate K 875-125 MG Tab PO SCH (08:07)
[2017-03-15] MEDS: Enoxaparin 30 MG/0.3 ML Syringe SUBCUT SCH (08:07)
[2017-03-15] MEDS: Loratadine 10 MG Tab PO SCH (08:08)
[2017-03-15] MEDS: Fluticasone Propionate Nasal Spray 16 GM Bottle NAS SCH (08:10)
[2017-03-15] MEDS: Polyethylene Glycol 3350 Powder 17 GM Packet PO SCH (08:10)
[2017-03-15] MEDS: levETIRAcetam 250 MG Tab PO SCH (08:10)
[2017-03-15] MEDS: Chlorhexidine Gluconate 0.12% Oral Rinse 15 ML Cup PO SCH (08:11)
[2017-03-15] MEDS: Sertraline 50 MG Tab PO SCH (08:11)
--- NOTE | 2017-03-15 13:49 | PCM.DCSUM1 ---
Discharge Summary - Hospital Course Brief History: Mr. Fofana is a 62-year-old gentleman who was admitted as a direct admission in transfer from [facility] for further evaluation and management of aspiration pneumonia. - Discharge Data Discharge Date: 03/15/17 Discharge Disposition: DC/Tfer to [facility]04 Condition: Fair - Discharge Diagnosis/Problem(s) (1) Recurrent aspiration pneumonia SNOMED Code(s): 389122053 ICD Code: J69.0 - PNEUMONITIS DUE TO INHALATION OF FOOD AND VOMIT Status: Acute Current Visit: Yes (2) Sepsis SNOMED Code(s): 01449593 ICD Code: A41.9 - SEPSIS, UNSPECIFIED ORGANISM Status: Acute Current Visit: Yes Qualifiers: Sepsis type: sepsis due to unspecified organism Qualified Code(s): A41.9 - Sepsis, unspecified organism (3) Down's syndrome SNOMED Code(s): 82802545 ICD Code: Q90.9 - DOWN SYNDROME, UNSPECIFIED Status: Chronic Current Visit: Yes (4) Stage IV decubitus ulcer SNOMED Code(s): 734850958 ICD Code: L89.94 - PRESSURE ULCER OF UNSPECIFIED SITE, STAGE 4 Status: Chronic Current Visit: Yes Qualifiers: Pressure ulcer location: sacral region Qualified Code(s): L89.154 - Pressure ulcer of sacral region, stage 4 (5) Seizure disorder SNOMED Code(s): 945290968 ICD Code: G40.909 - EPILEPSY, UNSP, NOT INTRACTABLE, WITHOUT STATUS EPILEPTICUS Status: Chronic Current Visit: Yes - Patient Summary/Data Hospital Course: Mr. Fofana is a 62-year-old gentleman who was admitted as a direct admission from [facility] emergency department for management of recurrent aspiration pneumonia. He has a history of Down syndrome and is a resident of a long term in [facility]. He has a history over the past few months of recurrent hospitalizations for aspiration. Question with this episode is there he aspirated when he had a C Pap on. Evaluation in the emergency department showed evidence of hypoxia with sepsis and a right lung infiltrate consistent with pneumonia. He had been given vigorous IV fluid replacement for management of sepsis and started on IV antibiotic therapy with Zosyn. Blood cultures were obtained in the emergency department prior to transfer. With this management he improved relatively quickly with resolution of hypoxia and sepsis. He has had recent swallowing studies that do show he is at high risk for aspiration. I discussed all of this with his sister and she reports that she has been having recent conversations with Darius's primary care provider, about ongoing management and interventions. No specific decisions have been made as there is a state guardian would need to sign off on any changes in status. He will be discharged home on a pured nectar thickened liquid diet. Oral antibiotic therapy will be continued an additional 4 days and he will be scheduled to see his primary care provider within one week. On initial evaluation during admission he was noted to have a decubitus ulcer that was present on admission. Activity will be as tolerated. - Patient Instructions Diet: Pureed Diet, Other: [place] thickened liquids Activity: As Tolerated Other/Special Instructions: FU appt w/ primary care provider w/ 1 week. - Discharge Plan Prescriptions/Med Rec: Albuterol [IJP: Albuterol] 2.5 mg NEB Q4H PRN #60 ml PRN Reason: Dyspnea Amoxicillin/Clavulanate K [Augmentin 875-125 MG] 1 tab PO BID #10 tablet Home Medications: Home Meds Acetaminophen [Tylenol Extra Strength] 500 - 1,000 mg PO QID PRN 03/11/17 [ History] Acetylcysteine [Mucomyst 10%] 400 mg INH QID PRN 03/11/17 [History] Chlorhexidine Gluconate [Peridex 0.12% Rinse] 15 ml PO DAILY 03/11/17 [History] Clotrimazole [Lotrimin AF 1% Crm] 30 gm TOP BID PRN 03/11/17 [History] Fluticasone Propionate 1 spray NS DAILY 03/11/17 [History] Fluticasone/Salmeterol [Advair 250-50 Diskus] 1 each IH BID 03/11/17 [History] Lactose-Reduced Food [Ensure] 1 can PO BID 03/11/17 [History] Lactulose [Chronulac] 20 gm PO DAILY PRN 03/11/17 [History] Levothyroxine 175 mcg PO ACBRK 03/11/17 [History] Loratadine 10 mg PO DAILY 03/11/17 [History] Melatonin 5 mg PO BEDTIME 03/11/17 [History] Multivitamins with Zinc [Stress Formula with Zinc] 1 each PO DAILY 03/11/17 [ History] Omeprazole 20 mg PO DAILY 03/11/17 [History] Polyethylene Glycol 3350 [MiraLAX] 51 gm PO DAILY 03/11/17 [History] Polyvinyl Alcohol [LiquiTears 1.4% Ophth Soln] 15 ml EYEBOTH Q4H PRN 03/11/17 [ History] Saliva Substitution Combo No.9 [Biotene] 15 ml MM BID 03/11/17 [History] Sertraline [Zoloft] 50 mg PO DAILY 03/11/17 [History] Simethicone 125 mg PO TIDAC 03/11/17 [History] Triamcinolone Acetonide [Triamcinolone Acetonide 0.1% Oint] 1 g TOP BID PRN 07/22 [History] levETIRAcetam [Keppra] 250 mg PO BID 03/11/17 [History] Albuterol [IJP: Albuterol] 2.5 mg NEB Q4H PRN #60 ml 03/15/17 [Rx] Amoxicillin/Clavulanate K [Augmentin 875-125 MG] 1 tab PO BID #10 tablet [Rx] - Patient Data Vitals - Most Recent: Last Vital Signs Temp 98.3 F 03/15/17 08:04 Pulse 78 03/15/17 11:04 Resp 20 03/15/17 08:04 BP 100/74 03/15/17 08:04 Pulse Ox 91 L 03/15/17 08:04 Weight - Most Recent: 106 lb 9.602 oz I&O - Last 24 hours: Intake & Output 03/14/17 03/15/17 03/15/17 22:59 06:59 14:59 Intake Total 450 50 Balance 450 50 Med Orders - Current: Current Medications Acetaminophen (Tylenol) 650 mg PO Q4H PRN PRN Reason: Pain (Mild 1-3)/fever Acetaminophen (Tylenol) 650 mg RECTAL Q4H PRN PRN Reason: Mild pain/fever Albuterol (Proventil Neb Soln) 2.5 mg NEB Q4H PRN PRN Reason: Shortness Of Breath/wheezing Albuterol/Ipratropium (Duoneb 3.0-0.5 Mg/3 Ml) 3 ml NEB QIDRT [facility] Last Admin: 03/15/17 11:02 Dose: 3 ml Amoxicillin/Clavulanate Potassium (Augmentin 875 Mg/125 Mg) 1 tab PO BID [facility] Last Admin: 03/15/17 08:07 Dose: 1 tab Artificial Tears (Natural Balance Tears) 0 ml EYEBOTH Q4H PRN PRN Reason: DRY EYES Benzonatate (Tessalon Perles) 100 mg PO TID PRN PRN Reason: Cough Chlorhexidine Gluconate (Peridex 0.12% Rinse) 15 ml PO DAILY [facility] Last Admin: 03/15/17 08:11 Dose: 15 ml Enoxaparin Sodium (Lovenox) 30 mg SUBCUT DAILY [facility] Last Admin: 03/15/17 08:07 Dose: 30 mg Fluticasone Propionate (Flonase) 0 gm JULIANA DAILY [facility] Last Admin: 03/15/17 08:10 Dose: 1 spray Levetiracetam (Keppra) 250 mg PO BID [facility] Last Admin: 03/15/17 08:10 Dose: 250 mg Levothyroxine Sodium 100 mcg/ (Levothyroxine Sodium 75 mcg) 175 mcg PO ACBREAKFAST [facility] Last Admin: 03/15/17 07:07 Dose: 175 mcg Loratadine (Claritin) 10 mg PO DAILY [facility] Last Admin: 03/15/17 08:08 Dose: 10 mg Magnesium Hydroxide (Milk Of Magnesia) 30 ml PO Q12H PRN PRN Reason: Constipation Melatonin (Melatonin) 6 mg PO BEDTIME [facility] Last Admin: 03/14/17 21:43 Dose: 6 mg Mometasone Furoate/Formoterol Fumar (Dulera 200-5 Mcg) 2 puff IH BIDRT [facility] Last Admin: 03/15/17 07:19 Dose: 2 inhalation Morphine Sulfate (Morphine) 2 mg IVPUSH Q2H PRN PRN Reason: Pain (severe 7-10) Ondansetron HCl (Zofran Odt) 4 mg PO Q6H PRN PRN Reason: Nausea able to take PO Ondansetron HCl (Zofran) 4 mg IV Q6H PRN PRN Reason: Nausea/Vomiting Pantoprazole Sodium (Protonix) 40 mg PO ACBREAKFAST [facility] Last Admin: 03/15/17 07:07 Dose: 40 mg Polyethylene Glycol (Miralax) 51 gm PO DAILY [facility] Last Admin: 03/15/17 08:10 Dose: 51 gm Senna/Docusate Sodium (Senna Plus) 1 tab PO BID PRN PRN Reason: Constipation Sertraline HCl (Zoloft) 50 mg PO DAILY [facility] Last Admin: 03/15/17 08:11 Dose: 50 mg Simethicone (Simethicone) 120 mg PO TIDAC [facility] Last Admin: 03/15/17 07:06 Dose: 120 mg Discontinued Medications Hydrocortisone Sodium Succinate (Solu-Cortef) 100 mg IVPUSH ONETIME ONE Stop: 03/12/17 00:17 Last Admin: 03/12/17 00:32 Dose: 100 mg Piperacillin/Tazobactam/ (Dextrose 3.375 gm/ Premix) 50 mls @ 100 mls/hr IV Q6H [facility] Last Admin: 03/13/17 14:32 Dose: 100 mls/hr Sodium Chloride (Normal Saline) 1,000 mls @ 125 mls/hr IV ASDIRECTED [facility] Last Admin: 03/12/17 07:01 Dose: 125 mls/hr Sodium Chloride (Normal Saline) 500 mls @ 999 mls/hr IV ASDIRECTED [facility] Last Admin: 03/12/17 00:19 Dose: 999 mls/hr Sodium Chloride (Normal Saline) 1,000 mls @ 100 mls/hr IV ASDIRECTED [facility] Last Admin: 03/13/17 12:27 Dose: 100 mls/hr Potassium Chloride (Klor-Con M20) 40 meq PO ONETIME ONE Stop: 03/13/17 10:01 Last Admin: 03/13/17 12:26 Dose: 40 meq *Q Meaningful Use (DIS) - VTE *Q VTE Criteria *Q: - Stroke *Q Stroke Criteria *Q: - AMI *Q AMI Criteria *Q:
== END 2017-03-15 14:45 | DRG 871 ==
LOC: JP.ICU 16:57 → JP.MS 03-12 17:05
PROVIDERS: ADMIT Internal Medicine; ATTEND Hospitalist
DX: A41.9 Sepsis, unspecified organism (principal); J69.0 Pneumonitis due to inhalation of food and vomit; J96.91 Respiratory failure, unspecified with hypoxia; L89.154 Pressure ulcer of sacral region, stage 4; Q90.9 Down syndrome, unspecified; E03.9 Hypothyroidism, unspecified; G40.909 Epilepsy, unspecified, not intractable, without status epilepticus; Z87.01 Personal history of pneumonia (recurrent)
CPT/HCPCS: 36415; 80048; 83735; 85027; 94640; 94640-76; 94664; A9270-GY; J1650; J1720; J2543; J7040; J7620